=== PATIENT | female | born 1965 | race African-American/Black ===

== ENCOUNTER → 2016-05-29 | Outpatient (CLI) | payer BC | END | disposition home or self-care (01) | LOC: US 07:34 | PROVIDERS: ATTEND Internal Medicine Endocrinology, Diabetes & Metabolism | DX: R19.00 Intra-abdominal and pelvic swelling, mass and lump, unspecified site (principal); K80.20 Calculus of gallbladder without cholecystitis without obstruction; N28.1 Cyst of kidney, acquired; D25.9 Leiomyoma of uterus, unspecified | CPT/HCPCS: 76700; 76830; 76856 ==

== ENCOUNTER → 2016-08-16 | Outpatient (CLI) | payer BC ==
[2016-08-16 14:13] LABS: BASOPHILS % 0.7 % (0.0-2.0); DIFFERENTIAL COMMENT 0; EOSINOPHILS % 0.9 % (0.0-5.0); HEMATOCRIT. 37.3 % (36.0-48.0); HEMOGLOBIN. 12.4 g/dL (12.0-16.0); LYMPHOCYTES % 44.2 % (20.0-50.0); MEAN CORPUSCULAR HEMOGLOBIN 25.5 pg (28.0-32.0); MEAN CORPUSCULAR HGB CONC 33.3 g/dL (31.0-37.0); MEAN CORPUSCULAR VOLUME 76.7 fL (81.0-99.0); MONOCYTES % 6.2 % (2.0-8.0); PLATELET 217 x1000/uL (130-400); RED BLOOD CELL COUNT 4.86 mill/uL (4.2-5.4); RED CELL DISTRIBUTION WIDTH 15.3 % (11.6-14.6); WHITE BLOOD COUNT 6.3 x1000/uL (4.5-11.0)
[2016-08-16 14:42] LABS: CHLORIDE 106 mEq/L (98-107); INDEX HEMOLYSI 1 (1-3); INDEX ICTERIC 1 (1-4); INDEX LIPEMIC 1 (1-3)
[2016-08-16 14:50] LABS: ALANINE AMINOTRANSFERASE 18 IU/L (13-61); ALBUMIN 3.7 g/dL (3.4-5.0); ANION GAP 11; CALCIUM 7.9 mg/dL (8.5-10.1); CARBON DIOXIDE 27 mEq/L (21-32); HDL CHOLESTEROL 72 mg/dL (40-59); LDL CHOLESTEROL 99 mg/dL (5-100); TRIGLYCERIDE 123 mg/dL (0-150); UREA NITROGEN BLOOD 10 mg/dL (7-21); eGFR > 60 mL/min (>60)
== END | disposition home or self-care (01) ==
LOC: LAB 11:09
PROVIDERS: ATTEND Internal Medicine Endocrinology, Diabetes & Metabolism
DX: E78.00 Pure hypercholesterolemia, unspecified (principal); R97.1 Elevated cancer antigen 125 [CA 125]
CPT/HCPCS: 36415; 80053; 80061; 85025; 86304

== ENCOUNTER → 2016-12-20 | Outpatient (CLI) | payer BC ==
[2016-12-20 11:31] LABS: CLARITY URINE CLEAR (CLEAR); COLOR URINE YELLOW (YELLOW); GLUCOSE URINE NEGATIVE (NEGATIVE); KETONES URINE NEGATIVE (NEGATIVE); LEUKOCYTE ESTERASE URINE TRACE (NEGATIVE); NITRITE URINE NEGATIVE (NEGATIVE); OCCULT BLOOD URINE NEGATIVE (NEGATIVE); PROTEIN URINE NEGATIVE (NEGATIVE); SPECIFIC GRAVITY URINE 1.009 (1.005-1.030); UROBILINOGEN URINE 0.2 E.U./dL (0.2-1.0)
[2016-12-20 11:42] LABS: INR 1.1; PARTIAL THROMBOPLASTIN TIME 26.8 sec (23.4-31.0); PROTHROMBIN TIME 10.9 sec (9.4-11.6)
[2016-12-20 11:48] LABS: BASOPHILS % 0.6 % (0.0-2.0); EOSINOPHILS % 1.4 % (0.0-5.0); HEMATOCRIT. 37.5 % (36.0-48.0); HEMOGLOBIN. 12.5 g/dL (12.0-16.0); LYMPHOCYTES % 42.6 % (20.0-50.0); MEAN CORPUSCULAR HEMOGLOBIN 25.5 pg (28.0-32.0); MEAN CORPUSCULAR VOLUME 76.9 fL (81.0-99.0); MONOCYTES % 6.1 % (2.0-8.0); NEUTROPHILS % 49.3 % (40.0-76.0); PLATELET 202 x1000/uL (130-400); RED BLOOD CELL COUNT 4.88 mill/uL (4.2-5.4); RED CELL DISTRIBUTION WIDTH 15.3 % (11.6-14.6)
[2016-12-20 11:57] LABS: CARBON DIOXIDE 26 mEq/L (21-32); CHLORIDE 104 mEq/L (98-107); HDL CHOLESTEROL 71 mg/dL (40-59); LDL CHOLESTEROL 95 mg/dL (5-100); T4 FREE 0.79 ng/dL (0.76-1.46); TOTAL IRON BINDING CAPACITY 404 ug/dL (250-450)
== END | disposition home or self-care (01) ==
LOC: LAB 07:06
PROVIDERS: ATTEND Podiatrist Foot & Ankle Surgery
DX: E11.65 Type 2 diabetes mellitus with hyperglycemia (principal); D64.9 Anemia, unspecified; E78.00 Pure hypercholesterolemia, unspecified
CPT/HCPCS: 36415; 80053; 80061; 81001; 82728; 83036; 83540; 83550; 84439; 84443; 85025; 85610; 85730; 87077; 87086

== ENCOUNTER → 2016-12-23 | Outpatient (CLI) | payer BC | END | disposition home or self-care (01) | LOC: RAD 07:07 | PROVIDERS: ATTEND Podiatrist Foot & Ankle Surgery | DX: M19.072 Primary osteoarthritis, left ankle and foot (principal); M19.071 Primary osteoarthritis, right ankle and foot; M20.12 Hallux valgus (acquired), left foot; M20.11 Hallux valgus (acquired), right foot | CPT/HCPCS: 73630 ==

== ENCOUNTER → 2016-12-31 | Outpatient (CLI) | payer BC | END | disposition home or self-care (01) | LOC: RAD 10:48 | PROVIDERS: ATTEND Internal Medicine Endocrinology, Diabetes & Metabolism | DX: Z01.818 Encounter for other preprocedural examination (principal); D25.1 Intramural leiomyoma of uterus | CPT/HCPCS: 71010 ==

== ENCOUNTER 2017-01-08 05:34 | Inpatient (IN) | payer BC ==
[~2017-01-08] VITALS: Ht 167.6 cm; Wt 65.8 kg
[2017-01-08] MEDS ORDERED: LACTATED RINGERS 1,000 ML IV SCH (06:40)
[2017-01-08 06:53] LABS: CLARITY URINE CLEAR (CLEAR); COLOR URINE YELLOW (YELLOW); GLUCOSE URINE NEGATIVE (NEGATIVE); KETONES URINE NEGATIVE (NEGATIVE); LEUKOCYTE ESTERASE URINE 1+ (NEGATIVE); NITRITE URINE NEGATIVE (NEGATIVE); OCCULT BLOOD URINE NEGATIVE (NEGATIVE); PROTEIN URINE NEGATIVE (NEGATIVE); SPECIFIC GRAVITY URINE 1.018 (1.005-1.030); UROBILINOGEN URINE 0.2 E.U./dL (0.2-1.0)
[2017-01-08 07:03] LABS: UCG SCREEN NEGATIVE
[2017-01-08] MEDS ORDERED: MIDAZOLAM HCL 2 MG/2 ML VIAL ONE (07:19)
[2017-01-08] MEDS ORDERED: FENTANYL CITRATE/PF 50MCG/ML 2ML VIAL ONE (07:19)
[2017-01-08] MEDS ORDERED: HYDROMORPHONE HCL/PF 2MG/ML CPJ IV PRN ×2 (07:30)
[2017-01-08] MEDS ORDERED: ONDANSETRON HCL 4MG/2ML VIAL IV PRN ×2 (07:30)
[2017-01-08] MEDS ORDERED: LABETALOL HCL 20MG/4ML CARPUJECT IV PRN ×2 (07:30)
[2017-01-08] MEDS ORDERED: MEPERIDINE HCL/PF 25MG/ML CPJ IV PRN ×2 (07:30)
[2017-01-08] MEDS ORDERED: HYDROMORPHONE HCL/PF 2MG/ML (OR) ONE (07:58)
[2017-01-08] MEDS ORDERED: VASOPRESSIN 20 UNIT/ML 1ML ONE (08:02)
[2017-01-08] MEDS ORDERED: SODIUM CHLORIDE 0.9% 100 ML ONE (08:03)
[2017-01-08] MEDS ORDERED: DEXAMETHASONE 4MG/ML 1ML VIAL ONE (08:45)
[2017-01-08] MEDS ORDERED: NEOSTIGMINE METHYLSULFATE 1MG/ML 10 ML VIAL ONE (08:45)
[2017-01-08] MEDS ORDERED: GLYCOPYRROLATE 0.2 MG/ML 2ML VIAL ONE ×2 (08:45→08:46)
[2017-01-08] MEDS ORDERED: SUCCINYLCHOLINE CHLORIDE 200MG/10ML VIAL IV ONE (08:46)
[2017-01-08] MEDS ORDERED: ROCURONIUM BROMIDE 10MG/ML VIAL 5ML IV ONE (08:46)
[2017-01-08] MEDS ORDERED: SODIUM CHLORIDE 0.9% 10ML VIAL ONE ×2 (08:46→08:50)
[2017-01-08] MEDS ORDERED: LIDOCAINE HCL 1% 20ML VIAL (Pyxis) INJ ONE (08:46)
[2017-01-08] MEDS ORDERED: ONDANSETRON HCL 4MG/2ML VIAL ONE (08:46)
[2017-01-08] MEDS ORDERED: PROPOFOL 200MG/20ML VIAL IV ONE (08:46)
[2017-01-08] MEDS ORDERED: CEFAZOLIN SODIUM 1000MG/VIAL ONE (08:46)
[2017-01-08] MEDS ORDERED: NALOXONE HCL 0.4 MG/ML 1ML VIAL ONE (08:50)
[2017-01-08] MEDS ORDERED: HYDROCODONE/ACETAMINOPHEN 5/325MG TABLET PO PRN (09:15)
[2017-01-08] MEDS ORDERED: IBUPROFEN 600MG TABLET PO PRN (09:15)
[2017-01-08] MEDS ORDERED: ONDANSETRON INJ IV PRN (09:30)
[2017-01-08] MEDS ORDERED: NALOXONE INJ IV PRN (09:30)
[2017-01-08] MEDS ORDERED: DIPHENHYDRAMINE INJ IV PRN (09:30)
[2017-01-08] MEDS ORDERED: HYDROMORPHONE PCA 10MG/50ML IV PRN (09:30)
[2017-01-08 17:11] VITALS: BP 136/75
[2017-01-08 17:19] VITALS: BP 139/75
[2017-01-08] MEDS: BETHANECHOL CHLORIDE 25 MG TABLET PO SCH (18:30)
[2017-01-08] MEDS: DEXT 5%/LACTATED RINGERS 1,000 ML IV SCH (18:51)
[2017-01-08 20:00] VITALS: BP 105/53
[2017-01-09] VITALS: BP 109/59
[2017-01-09] MEDS: DEXT 5%/LACTATED RINGERS 1,000 ML IV SCH ×3 (03:00→09:26)
[2017-01-09 04:00] VITALS: BP 100/51
[2017-01-09 06:48] LABS: BASOPHILS % 0.3 % (0.0-2.0); HEMATOCRIT. 36.1 % (36.0-48.0); HEMOGLOBIN. 11.9 g/dL (12.0-16.0); LYMPHOCYTES % 16.2 % (20.0-50.0); MEAN CORPUSCULAR HEMOGLOBIN 25.6 pg (28.0-32.0); MEAN CORPUSCULAR VOLUME 77.4 fL (81.0-99.0); MEAN PLATELET VOLUME 9.9 fl (7.4-10.4); MONOCYTES % 5.4 % (2.0-8.0); NEUTROPHILS % 78.1 % (40.0-76.0); PLATELET 192 x1000/uL (130-400); RED BLOOD CELL COUNT 4.66 mill/uL (4.2-5.4); RED CELL DISTRIBUTION WIDTH 14.7 % (11.6-14.6)
[2017-01-09 08:00] VITALS: BP 95/46
[2017-01-09] MEDS: BETHANECHOL CHLORIDE 25 MG TABLET PO SCH ×3 (09:00→17:00)
[2017-01-09 12:00] VITALS: BP 105/51
[2017-01-09 16:00] VITALS: BP 113/54
[2017-01-09 20:00] VITALS: BP 105/54
[2017-01-10] VITALS: BP 121/57
[2017-01-10 04:00] VITALS: BP 116/70
[2017-01-10 20:01] VITALS: BP 128/75
== END 2017-01-10 20:25 | disposition home or self-care (01) | DRG 743 ==
LOC: OR 05:34 → 8WST 05:35
PROVIDERS: ADMIT Obstetrics & Gynecology Obstetrics; ATTEND Obstetrics & Gynecology Obstetrics
PROC: 0UTC0ZZ Resection of Cervix, Open Approach (ICD-10-PCS; 2017-01-08)
PROC: 0UT70ZZ Resection of Bilateral Fallopian Tubes, Open Approach (ICD-10-PCS; 2017-01-08)
PROC: 0UT90ZZ Resection of Uterus, Open Approach (ICD-10-PCS; principal; 2017-01-08 07:30)
DX: N80.0 Endometriosis of uterus (principal); D25.9 Leiomyoma of uterus, unspecified; N80.3 Endometriosis of pelvic peritoneum; Z82.3 Family history of stroke; Z90.710 Acquired absence of both cervix and uterus; Z98.51 Tubal ligation status
CPT/HCPCS: 36415; 81001; 81025; 85025; 86850; 86900; 88307; A4216; C1725; J0330; J0690; J1100; J1170; J2250; J2310; J2405; J2704; J2710; J3010; J3490; J7050; J7120; J7121

== ENCOUNTER → 2017-05-16 | Outpatient (CLI) | payer BC ==
[2017-05-16 10:56] LABS: BASOPHILS % 0.6 % (0.0-2.0); EOSINOPHILS % 1.3 % (0.0-5.0); HEMATOCRIT. 38.8 % (36.0-48.0); HEMOGLOBIN. 13.1 g/dL (12.0-16.0); LYMPHOCYTES % 40.8 % (20.0-50.0); MEAN CORPUSCULAR HEMOGLOBIN 25.8 pg (28.0-32.0); MEAN CORPUSCULAR VOLUME 76.6 fL (81.0-99.0); MEAN PLATELET VOLUME 8.9 fl (7.4-10.4); MONOCYTES % 5.2 % (2.0-8.0); NEUTROPHILS % 52.1 % (40.0-76.0); PLATELET 214 x1000/uL (130-400); RED BLOOD CELL COUNT 5.07 mill/uL (4.2-5.4); RED CELL DISTRIBUTION WIDTH 14.3 % (11.6-14.6)
[2017-05-16 11:42] LABS: CHLORIDE 104 mEq/L (98-107); HDL CHOLESTEROL 71 mg/dL (40-59); LDL CHOLESTEROL 108 mg/dL (5-100); T4 FREE 0.86 ng/dL (0.76-1.46); TOTAL IRON BINDING CAPACITY 396 ug/dL (250-450)
[2017-05-16 11:57] LABS: VITAMIN B12 SERUM 302 pg/mL (211-911)
[2017-05-16 12:04] LABS: FOLIC ACID (FOLATE) SERUM > 20.00 ng/mL (>5.38)
[2017-05-16 13:06] LABS: FERRITIN 12 ng/mL (10-291)
[2017-05-19 09:06] LABS: A/G RATIO 1.1 (0.7-1.7); ALBUMIN 3.7 g/dL (2.9-4.4); ALPHA-1-GLOBULIN 0.2 g/dL (0.0-0.4); ALPHA-2-GLOBULIN 0.7 g/dL (0.4-1.0); BETA GLOBULIN 1.1 g/dL (0.7-1.3); GAMMA GLOBULINS 1.4 g/dL (0.4-1.8); GLOBULIN TOTAL 3.4 g/dL (2.2-3.9); M-SPIKE Not Observed g/dL (Not Observed); TOTAL PROTEIN SERUM 7.1 g/dL (6.0-8.5)
== END | disposition home or self-care (01) ==
LOC: LAB 10:28
PROVIDERS: ATTEND Internal Medicine Endocrinology, Diabetes & Metabolism
DX: D64.9 Anemia, unspecified (principal); E78.00 Pure hypercholesterolemia, unspecified; R73.9 Hyperglycemia, unspecified
CPT/HCPCS: 36415; 80053; 80061; 82607; 82728; 82746; 83036; 83540; 83550; 83921; 84155; 84165; 84439; 84443; 85025

== ENCOUNTER → 2018-03-18 | Outpatient (CLI) | payer BC ==
[2018-03-18 08:14] LABS: CHLORIDE 105 mEq/L (98-107)
[2018-03-18 08:18] LABS: BASOPHILS % 0.7 % (0.0-2.0); HEMATOCRIT. 39.6 % (36.0-48.0); HEMOGLOBIN. 13.3 g/dL (12.0-16.0); LYMPHOCYTES % 49.2 % (20.0-50.0); MEAN CORPUSCULAR HEMOGLOBIN 26.4 pg (28.0-32.0); MEAN CORPUSCULAR VOLUME 78.7 fL (81.0-99.0); MEAN PLATELET VOLUME 8.8 fl (7.4-10.4); MONOCYTES % 5.3 % (2.0-8.0); NEUTROPHILS % 42.8 % (40.0-76.0); PLATELET 226 x1000/uL (130-400); RED BLOOD CELL COUNT 5.04 mill/uL (4.2-5.4); RED CELL DISTRIBUTION WIDTH 15.1 % (11.6-14.6)
== END | disposition home or self-care (01) ==
LOC: LAB 03-17 12:47
PROVIDERS: ATTEND Internal Medicine Endocrinology, Diabetes & Metabolism
DX: R73.9 Hyperglycemia, unspecified (principal); E55.9 Vitamin D deficiency, unspecified; E78.00 Pure hypercholesterolemia, unspecified
CPT/HCPCS: 36415; 82306; 83036; 84443

== ENCOUNTER → 2018-09-10 | Outpatient (CLI) | payer BC ==
[2018-09-10 07:22] LABS: BASOPHILS % 0.6 % (0.0-2.0); EOSINOPHILS % 1.6 % (0.0-5.0); HEMATOCRIT. 40.4 % (36.0-48.0); HEMOGLOBIN. 13.6 g/dL (12.0-16.0); LYMPHOCYTES % 39.3 % (20.0-50.0); MEAN CORPUSCULAR HEMOGLOBIN 26.3 pg (28.0-32.0); MEAN CORPUSCULAR VOLUME 78.2 fL (81.0-99.0); MEAN PLATELET VOLUME 8.7 fl (7.4-10.4); MONOCYTES % 6.2 % (2.0-8.0); NEUTROPHILS % 52.3 % (40.0-76.0); PLATELET 246 x1000/uL (130-400); RED BLOOD CELL COUNT 5.17 mill/uL (4.2-5.4); RED CELL DISTRIBUTION WIDTH 14.5 % (11.6-14.6)
[2018-09-10 08:12] LABS: CHLORIDE 108 mEq/L (98-107)
[2018-09-10 08:20] LABS: VITAMIN B12 SERUM 451 pg/mL (211-911)
[2018-09-10 08:21] LABS: LDL CHOLESTEROL 105 mg/dL (5-100)
[2018-09-10 08:22] LABS: HDL CHOLESTEROL 67 mg/dL (40-59)
== END | disposition home or self-care (01) ==
LOC: LAB 06:42
PROVIDERS: ATTEND Internal Medicine Endocrinology, Diabetes & Metabolism
DX: E78.5 Hyperlipidemia, unspecified (principal); I10 Essential (primary) hypertension; E53.8 Deficiency of other specified B group vitamins; R73.9 Hyperglycemia, unspecified
CPT/HCPCS: 36415; 80061; 82306; 82607; 83036; 84443

== ENCOUNTER → 2018-09-28 | Outpatient (CLI) | payer BC | END | disposition home or self-care (01) | LOC: MAMMO 07:56 | PROVIDERS: ATTEND Internal Medicine Endocrinology, Diabetes & Metabolism | DX: Z12.31 Encounter for screening mammogram for malignant neoplasm of breast (principal) | CPT/HCPCS: 77067 ==

== ENCOUNTER → 2018-10-29 | Outpatient (CLI) | payer BC ==
[2018-10-29 10:48] LABS: CLARITY URINE CLOUDY (CLEAR); COLOR URINE YELLOW (YELLOW); KETONES URINE NEGATIVE (NEGATIVE); LEUKOCYTE ESTERASE URINE 1+ (NEGATIVE); NITRITE URINE NEGATIVE (NEGATIVE); OCCULT BLOOD URINE NEGATIVE (NEGATIVE); PH URINE 5.5 (4.5-8.0); PROTEIN URINE NEGATIVE (NEGATIVE); SPECIFIC GRAVITY URINE 1.025 (1.005-1.030); UROBILINOGEN URINE 0.2 E.U./dL (0.2-1.0)
== END | disposition home or self-care (01) ==
LOC: LAB 10:27
PROVIDERS: ATTEND Internal Medicine Endocrinology, Diabetes & Metabolism
DX: N39.0 Urinary tract infection, site not specified (principal)
CPT/HCPCS: 87077; 87186

== ENCOUNTER → 2019-01-25 | Outpatient (CLI) | payer BC ==
[2019-01-25 09:27] LABS: BASOPHILS % 0.7 % (0.0-2.0); EOSINOPHILS % 1.8 % (0.0-5.0); HEMATOCRIT. 38.3 % (36.0-48.0); HEMOGLOBIN. 12.9 g/dL (12.0-16.0); LYMPHOCYTES % 40.6 % (20.0-50.0); MEAN CORPUSCULAR HEMOGLOBIN 25.9 pg (28.0-32.0); MEAN CORPUSCULAR VOLUME 77.3 fL (81.0-99.0); MEAN PLATELET VOLUME 8.9 fl (7.4-10.4); MONOCYTES % 4.8 % (2.0-8.0); NEUTROPHILS % 52.1 % (40.0-76.0); PLATELET 175 x1000/uL (130-400); RED BLOOD CELL COUNT 4.96 mill/uL (4.2-5.4); RED CELL DISTRIBUTION WIDTH 14.7 % (11.6-14.6)
[2019-01-25 09:47] LABS: CHLORIDE 109 mEq/L (98-107)
[2019-01-25 09:54] LABS: LDL CHOLESTEROL 106 mg/dL (5-100)
[2019-01-25 09:56] LABS: HDL CHOLESTEROL 67 mg/dL (40-59); T4 FREE 0.96 ng/dL (0.76-1.46)
[2019-01-26 09:06] LABS: THYROID PEROXIDASE ANTIBODY < 6 IU/mL (0-34)
== END | disposition home or self-care (01) ==
LOC: LAB 08:43
PROVIDERS: ATTEND Internal Medicine Endocrinology, Diabetes & Metabolism
DX: E78.5 Hyperlipidemia, unspecified (principal); R73.9 Hyperglycemia, unspecified; E04.9 Nontoxic goiter, unspecified
CPT/HCPCS: 36415; 80061; 83036; 84439; 84443; 86376; 86800

== ENCOUNTER → 2019-04-26 | Outpatient (CLI) | payer BC ==
[2019-04-26 08:04] LABS: CLARITY URINE CLEAR (CLEAR); COLOR URINE YELLOW (YELLOW); KETONES URINE NEGATIVE (NEGATIVE); LEUKOCYTE ESTERASE URINE TRACE (NEGATIVE); NITRITE URINE NEGATIVE (NEGATIVE); OCCULT BLOOD URINE NEGATIVE (NEGATIVE); PH URINE 6.5 (4.5-8.0); PROTEIN URINE NEGATIVE (NEGATIVE); UROBILINOGEN URINE 0.2 E.U./dL (0.2-1.0)
[2019-04-26 08:12] LABS: BASOPHILS % 0.5 % (0.0-2.0); HEMATOCRIT. 37.5 % (36.0-48.0); HEMOGLOBIN. 12.4 g/dL (12.0-16.0); LYMPHOCYTES % 36.9 % (20.0-50.0); MEAN CORPUSCULAR HEMOGLOBIN 25.6 pg (28.0-32.0); MEAN CORPUSCULAR VOLUME 77.1 fL (81.0-99.0); NEUTROPHILS % 55.6 % (40.0-76.0); PLATELET 177 x1000/uL (130-400); RED BLOOD CELL COUNT 4.86 mill/uL (4.2-5.4); RED CELL DISTRIBUTION WIDTH 14.4 % (11.6-14.6)
[2019-04-26 08:17] LABS: CHLORIDE 109 mEq/L (98-107)
[2019-04-26 08:24] LABS: LDL CHOLESTEROL 110 mg/dL (5-100)
[2019-04-26 08:26] LABS: HDL CHOLESTEROL 76 mg/dL (40-59); T4 FREE 0.97 ng/dL (0.76-1.46)
[2019-04-26 08:48] LABS: VITAMIN B12 SERUM 509 pg/mL (211-911)
[2019-04-27 09:09] LABS: VITAMIN D 25-OH 24.5 ng/mL (30.0-100.0)
== END | disposition home or self-care (01) ==
LOC: LAB 07:21
PROVIDERS: ATTEND Internal Medicine Endocrinology, Diabetes & Metabolism
DX: E78.5 Hyperlipidemia, unspecified (principal); R73.9 Hyperglycemia, unspecified; N39.0 Urinary tract infection, site not specified; E04.1 Nontoxic single thyroid nodule
CPT/HCPCS: 36415; 80053; 80061; 81003; 82306; 82607; 83036; 83921; 84439; 84443; 85025

== ENCOUNTER → 2019-10-06 | Outpatient (CLI) | payer BC ==
[2019-10-06 09:09] LABS: BASOPHILS % 0.8 % (0.0-2.0); EOSINOPHILS % 1.9 % (0.0-5.0); HEMATOCRIT. 38.8 % (36.0-48.0); HEMOGLOBIN. 13.2 g/dL (12.0-16.0); LYMPHOCYTES % 50.5 % (20.0-50.0); MEAN CORPUSCULAR HEMOGLOBIN 26.4 pg (28.0-32.0); MEAN CORPUSCULAR VOLUME 77.6 fL (81.0-99.0); MEAN PLATELET VOLUME 8.8 fl (7.4-10.4); MONOCYTES % 6.3 % (2.0-8.0); NEUTROPHILS % 40.5 % (40.0-76.0); PLATELET 201 x1000/uL (130-400); RED CELL DISTRIBUTION WIDTH 14.9 % (11.6-14.6)
[2019-10-06 09:17] LABS: CHLORIDE 107 mEq/L (98-107)
[2019-10-06 09:24] LABS: LDL CHOLESTEROL 120 mg/dL (5-100)
[2019-10-06 09:26] LABS: HDL CHOLESTEROL 76 mg/dL (40-59); T4 FREE 0.96 ng/dL (0.76-1.46)
[2019-10-06 09:55] LABS: FOLIC ACID (FOLATE) SERUM >20 ng/mL ng/mL (>5.38)
[2019-10-06 10:06] LABS: VITAMIN B12 SERUM 574 pg/mL (211-911)
[2019-10-08 09:09] LABS: VITAMIN D 25-OH 23.3 ng/mL (30.0-100.0)
== END | disposition home or self-care (01) ==
LOC: LAB 08:41
PROVIDERS: ATTEND Internal Medicine Endocrinology, Diabetes & Metabolism
DX: E53.8 Deficiency of other specified B group vitamins (principal); E04.1 Nontoxic single thyroid nodule; E55.9 Vitamin D deficiency, unspecified; R73.9 Hyperglycemia, unspecified; E78.5 Hyperlipidemia, unspecified
CPT/HCPCS: 36415; 80053; 80061; 82306; 82607; 82746; 83036; 83921; 84439; 84443; 85025

== ENCOUNTER → 2020-01-11 | Outpatient (CLI) | payer BC ==
[2020-01-11 07:12] LABS: BASOPHILS % 0.4 % (0.0-2.0); EOSINOPHILS % 2.1 % (0.0-5.0); HEMATOCRIT. 40.9 % (36.0-48.0); HEMOGLOBIN. 13.6 g/dL (12.0-16.0); LYMPHOCYTES % 46.4 % (20.0-50.0); MEAN CORPUSCULAR HEMOGLOBIN 25.4 pg (28.0-32.0); MEAN CORPUSCULAR VOLUME 76.6 fL (81.0-99.0); MEAN PLATELET VOLUME 8.8 fl (7.4-10.4); MONOCYTES % 6.4 % (2.0-8.0); NEUTROPHILS % 44.7 % (40.0-76.0); PLATELET 228 x1000/uL (130-400); RED BLOOD CELL COUNT 5.34 mill/uL (4.2-5.4); RED CELL DISTRIBUTION WIDTH 14.7 % (11.6-14.6)
[2020-01-11 07:18] LABS: CHLORIDE 107 mEq/L (98-107)
[2020-01-11 07:25] LABS: LDL CHOLESTEROL 125 mg/dL (5-100)
[2020-01-11 07:26] LABS: HDL CHOLESTEROL 78 mg/dL (40-59)
[2020-01-11 07:27] LABS: T4 FREE 0.85 ng/dL (0.76-1.46)
[2020-01-11 08:06] LABS: VITAMIN B12 SERUM 542 pg/mL (211-911)
[2020-01-11 08:19] LABS: FOLIC ACID (FOLATE) SERUM > 20.00 ng/mL (>5.38)
[2020-01-12 09:10] LABS: VITAMIN D 25-OH 22.2 ng/mL (30.0-100.0)
== END | disposition home or self-care (01) ==
LOC: LAB 06:45
PROVIDERS: ATTEND Internal Medicine Endocrinology, Diabetes & Metabolism
DX: E78.5 Hyperlipidemia, unspecified (principal); E55.9 Vitamin D deficiency, unspecified; R73.9 Hyperglycemia, unspecified
CPT/HCPCS: 36415; 80053; 80061; 82306; 82607; 82746; 83921; 84439; 84443; 85025